=== PATIENT | female | born 1945 | race Caucasian/White ===

== ENCOUNTER 2020-10-21 08:37 | Emergency (ER) | payer OTHER, SELFPAY ==
[~2020-10-21] VITALS: Ht 152.4 cm; Wt 90.7 kg
[~2020-10-21 08:37] MED LIST: AMLODIPINE BESYL5 M2 PO; ASPIRIN CHILDRE81 MG PO; FORTAMET1000 MG PO; KLOR-CON M1010 MEQ PO; LEVO-T125 MCG PO; LISINOPRIL-HYDR1 TA4 PO; METOPROLOL SUCC50 M2 PO; ROSUVASTATIN CA20 MG PO; VITAMIN D50000 I4 PO; XAN5 PO; ZESTRIL20 MG PO
[2020-10-21 08:40] VITALS: Ht 152.4 cm; Wt 90.7 kg
[2020-10-21 12:38] LABS: CALCIUM 9.9 mg/dL (8.5-10.1); CARBON DIOXIDE 24.7 mmol/L (21-32); CHLORIDE SERUM 101 mmol/L (98-107); CREATININE SERUM 1.2 mg/dL (0.6-1.0); GLUCOSE SERUM 93 mg/dL (74-106); POTASSIUM SERUM 3.7 mmol/L (3.5-5.1); SODIUM SERUM 139 mmol/L (136-145)
[2020-10-21 12:43] LABS: ALBUMIN 3.9 g/dL (3.4-5.0); ALKALINE PHOSPHATASE 71 U/L (46-116); ALT/SGPT 30 U/L (14-59); AST/SGOT 20 U/L (15-37)
[2020-10-21 13:09] LABS: BASOPHIL % 0.2 % (0.2-1.3); PLATELET COUNT 241 x10^3mcL (179-408)
[2020-10-21 13:17] LABS: RED CELL DISTRIBUTION WIDTH 15.9 % (12.3-17.7)
[2020-10-21 15:37] VITALS: BP 140/70
== END 2020-10-21 15:37 | disposition home or self-care (01) ==
LOC: ED 08:37
PROVIDERS: Emergency Medicine
DX: U07.1 COVID-19 (principal); J12.89 Other viral pneumonia; I10 Essential (primary) hypertension; E11.9 Type 2 diabetes mellitus without complications; E03.9 Hypothyroidism, unspecified
CPT/HCPCS: 83880; U0003

== ENCOUNTER 2020-12-27 14:59 | Emergency (ER) | payer OTHER, SELFPAY ==
[~2020-12-27] VITALS: Ht 152.4 cm; Wt 95.3 kg
[2020-12-27 15:00] VITALS: Ht 152.4 cm; Wt 95.3 kg
[2020-12-27 15:52] LABS: CHLORIDE SERUM 96 mmol/L (98-107); CREATININE SERUM 1.2 mg/dL (0.6-1.0); GLUCOSE SERUM 164 mg/dL (74-106); POTASSIUM SERUM 3.3 mmol/L (3.5-5.1); SODIUM SERUM 135 mmol/L (136-145)
[2020-12-27 15:57] LABS: ALBUMIN 4.1 g/dL (3.4-5.0); ALKALINE PHOSPHATASE 70 U/L (46-116); ALT/SGPT 27 U/L (14-59); AST/SGOT 22 U/L (15-37); BILIRUBIN TOTAL 1.2 mg/dL (0.20-1.00); TOTAL PROTEIN, SERUM 7.8 g/dL (6.4-8.2)
[2020-12-27 15:59] LABS: BASOPHIL % 0.2 % (0.2-1.3); PLATELET COUNT 322 x10^3mcL (179-408)
[2020-12-27 16:06] LABS: RED CELL DISTRIBUTION WIDTH 16.9 % (12.3-17.7)
[2020-12-27] MEDS ORDERED: ONDANSETRON4 M3 PO (16:29)
[2020-12-27 17:16] VITALS: BP 116/59
== END 2020-12-27 17:16 | disposition home or self-care (01) ==
LOC: ED 14:59
PROVIDERS: Emergency Medicine
DX: G44.209 Tension-type headache, unspecified, not intractable (principal); K29.70 Gastritis, unspecified, without bleeding; I10 Essential (primary) hypertension; E11.9 Type 2 diabetes mellitus without complications; E03.9 Hypothyroidism, unspecified; M19.90 Unspecified osteoarthritis, unspecified site
CPT/HCPCS: J0780; J1200; J1885; J2405